=== PATIENT | female | born 1955 | race Caucasian/White ===

== ENCOUNTER 2024-01-22 06:50 | Emergency (ER) | payer MEDICARE ==
[~2024-01-22] VITALS: Ht 170.2 cm; Wt 77.1 kg
[2024-01-22 07:04] VITALS: BP 126/74; PULSE 86; RESP 20; TEMP 98; O2SAT 98
== END 2024-01-22 07:05 | disposition home or self-care (01) ==
LOC: EDH 06:50
DX: Z00.00 Encounter for general adult medical examination without abnormal findings (principal)